=== PATIENT | female | born 1990 | race Two or more races ===

== ENCOUNTER 2024-03-13 11:00 | Emergency (ER) | payer OTHER ==
[2024-03-13] MEDS: Iopamidol 612 MG/ML 100 ML Bottle IVPUSH ONE (13:00)
[2024-03-13] MEDS: Sodium Chloride 0.9% 10 ML Syringe FLUSH PRN (13:00)
== END 2024-03-13 14:28 | disposition home or self-care (01) ==
LOC: JD.ED 11:00
DX: Z03.821 Encounter for observation for suspected ingested foreign body ruled out (principal); Z79.899 Other long term (current) drug therapy
CPT/HCPCS: 74177; 76705; 99284; J3490; Q9967